=== PATIENT | female | born 1975 | race American Indian/Alaskan Native ===

== ENCOUNTER 2020-10-19 20:39 | Emergency (ER) | payer SELFPAY ==
[2020-10-19] MEDS ORDERED: ACETAMINOPHEN 325 MG TAB PO ONE (22:15)
[2020-10-19] MEDS ORDERED: ACETAMINOPHEN 325 MG/10.15 ML ORAL LIQD UNIT DOSE ONE (22:16)
[2020-10-19 22:27] VITALS: BP 167/98
--- NOTE | 2020-10-19 23:08 | XRay Report ---
LEFT HIP AND PELVIS 2 VIEWS RIGHT KNEE 2 VIEWS INDICATION: Left hip and right knee pain after injury. COMPARISON: No relevant prior imaging study available. FINDINGS: Right hip: No acute fracture or dislocation. No significant degenerative changes. Os acetabuli are se en along the lateral aspect of the left hip. Right knee: No fracture, dislocation, or joint effusion. No significant degenerative changes. No fore ign bodies. IMPRESSION: 1. No acute findings. Signer Name: Kailash May MD Signed: 10/19/2020 11:04 PM Workstation Name: [id number]
--- NOTE | 2020-10-19 23:38 | Emergency Department Report ---
ED Fall HPI - General Chief Complaint: Fall Stated Complaint: FALL,RIGHT LEG PAIN Time Seen by Provider: 10/19/20 23:15 Source: patient, EMS Mode of arrival: Wheelchair Limitations: No Limitations - History of Present Illness Initial Comments: Patient is a 45-year-old female that presents emergency room with complaints of right hip, right thigh and right knee pain. Patient states she was at a local grocery store and was shopping and slipped on a wet floor. Patient denies hitting her head. Patient denies loss of consciousness. Patient states she is not having any back pain. Patient denies arm pain. Patient states her only injury is the right lower extremity. Patient states the pain when she got here was an 8 out of 10. Patient is to give her Tylenol in triage and her pain is now a 4 out of 10. Patient states she is able to walk now. Patient states the pain is better with rest and worse with movement and palpation. Patient denies fever and chills. Patient denies chest pain or shortness of breath. Patient denies other injuries. Patient denies other physical complaints. Patient denies recent travel. Patient denies recent international travel. Patient denies exposure to the novel coronavirus. Patient denies sick contacts. Patient denies fever and chills. Patient denies cough. Patient denies diarrhea. Patient denies coming in contact with anybody with symptoms of the novel coronavirus. Complaint: fall -: Sudden Fall From: standing When Fall Occurred: 1 hour CIRCULATOR Fall Witnessed: yes, by bystander Place Fall Occurred: other (Grocery store) Loss of Consciousness: none Prolonged Down Time?: no Symptoms Prior to Fall: none Location - Extremities: Right: Thigh, Knee Severity scale (0 -10): 4 Quality: dull Context: tripped/slipped Associated Symptoms: denies. denies: headache, neck pain, numbness, weakness, chest paint, shortness of breath, abdominal pain, hematuria, unable to walk, lightheaded, vertigo, confusion - Related Data Previous Rx's Medication Instructions Recorded Last Taken Type Acetaminophen/Codeine [Tylenol 1 tab PO Q6H PRN #10 tab 10/19/20 Unknown Rx /Codeine # 3 tab] Allergies Allergy/AdvReac Type Severity Reaction Status Date / Time No Known Allergies Allergy Verified 10/19/20 22:24 ED Review of Systems ROS: Stated complaint: FALL,RIGHT LEG PAIN Other details as noted in HPI Constitutional: denies: chills, fever Eyes: denies: eye pain, eye discharge, vision change ENT: denies: ear pain, throat pain Respiratory: denies: cough, shortness of breath, wheezing Cardiovascular: denies: chest pain, palpitations Endocrine: no symptoms reported Gastrointestinal: denies: abdominal pain, nausea, diarrhea Genitourinary: denies: urgency, dysuria, discharge Musculoskeletal: as per HPI. denies: back pain, joint swelling, arthralgia Skin: denies: rash, lesions Neurological: denies: headache, weakness, paresthesias Psychiatric: denies: anxiety, depression Hematological/Lymphatic: denies: easy bleeding, easy bruising ED Past Medical Hx - Past Medical History Previous Medical History?: No - Surgical History Past Surgical History?: No - Family History Family history: no significant - Social History Smoking Status: Never Smoker Substance Use Type: None - Medications Home Medications: Home Medications Medication Instructions Recorded Confirmed Last Taken Type Acetaminophen/Codeine [Tylenol 1 tab PO Q6H PRN #10 tab 10/19/20 Unknown Rx /Codeine # 3 tab] ED Physical Exam - General Limitations: No Limitations General appearance: alert, in no apparent distress, obese - Head Head exam: Present: atraumatic, normocephalic - Eye Eye exam: Present: normal appearance - ENT ENT exam: Present: mucous membranes moist - Neck Neck exam: Present: normal inspection - Respiratory Respiratory exam: Present: normal lung sounds bilaterally. Absent: respiratory distress - Cardiovascular Cardiovascular Exam: Present: regular rate, normal rhythm. Absent: systolic murmur, diastolic murmur, rubs, gallop - GI/Abdominal GI/Abdominal exam: Present: soft, normal bowel sounds - Extremities Exam Extremities exam: Present: normal inspection, full ROM, tenderness (Right hip, right thigh and right knee.), normal capillary refill. Absent: calf tenderness - Back Exam Back exam: Present: normal inspection - Neurological Exam Neurological exam: Present: alert, oriented X3 - Psychiatric Psychiatric exam: Present: normal affect, normal mood - Skin Skin exam: Present: warm, dry, intact, normal color. Absent: rash ED Course Vital Signs 10/19/20 21:57 Temperature 97.9 F Pulse Rate 82 Respiratory 17 Rate Blood Pressure 167/98 O2 Sat by Pulse 100 Oximetry - Reevaluation(s) Reevaluation #1: I discussed all results and clinical findings with patient. I discussed plan of care with patient. Patient agrees with plan of care. Patient is stable for discharge. Patient will be discharged home. Patient given discharge instructions. Patient voiced understanding of discharge instructions. 10/19/20 23:51 ED Medical Decision Making - Radiology Data Radiology results: report reviewed, image reviewed interpreted by me: Right knee and hip x-ray: Soft tissue within normal limits, no foreign body, no osseous findings, no acute findings LEFT HIP AND PELVIS 2 VIEWS RIGHT KNEE 2 VIEWS INDICATION: Left hip and right knee pain after injury. COMPARISON: No relevant prior imaging study available. FINDINGS: Right hip: No acute fracture or dislocation. No significant degenerative changes. Os acetabuli are seen along the lateral aspect of the left hip. Right knee: No fracture, dislocation, or joint effusion. No significant degenerative changes. No foreign bodies. IMPRESSION: 1. No acute findings. - Medical Decision Making Patient is a 45-year-old female who presents emergency room status post fall at a grocery store. Patient states she slipped on a wet floor. Patient complained of right hip and right knee and right thigh pain. Patient stated her right knee and right hip were worse. Patient had x-rays done in the ER. Patient's x-rays were unremarkable. Patient stable for discharge. Patient be discharged home. - Differential Diagnosis Fall, pain, strain, fracture, contusion, knee, hip, thigh Critical care attestation.: If time is entered above; I have spent that time in minutes in the direct care of this critically ill patient, excluding procedure time. ED Disposition Clinical Impression: Acute right hip pain, Right thigh pain Fall Qualifiers: Encounter type: initial encounter Qualified Code(s): W19.XXXA - Unspecified fa ll, initial encounter Knee pain, right Qualifiers: Chronicity: acute Qualified Code(s): M25.561 - Pain in right knee Contusion, hip and thigh Qualifiers: Encounter type: initial encounter Laterality: right Qualified Code(s): S70.01XA - Contusion of right hip, initial encounter; S70.11XA - Contusion of right thigh, initial encounter Disposition: TO HOME OR SELFCARE Is pt being admited?: No Does the pt Need Aspirin: No Condition: Stable Instructions: Acute Knee Pain, Adult, Contusion, Hip Pain Additional Instructions: Patient to follow-up with primary care in 2 to 3 days. Patient to follow-up with orthopedist in 2 to 3 days. Patient to rest. Patient to increase water. Patient to avoid strenuous exercise or heavy lifting until cleared by orthopedist and primary. Patient to take Tylenol or ibuprofen as needed for pain. Patient to take meds as directed. Patient to return to the ER if condition worsens, changes or new symptoms arise. Prescriptions: Acetaminophen/Codeine [Tylenol /Codeine # 3 tab] 1 tab PO Q6H PRN #10 tab PRN Reason: Pain , Severe (7-10) Referrals: PRIMARY CARE, [Primary Care Provider] - 2-3 Days Time of Disposition: 23:52
== END 2020-10-20 00:10 | disposition home or self-care (01) ==
LOC: ED 20:39
DX: S70.01XA Contusion of right hip, initial encounter (principal); S70.11XA Contusion of right thigh, initial encounter; Z79.899 Other long term (current) drug therapy; W18.30XA Fall on same level, unspecified, initial encounter; Y93.89 Activity, other specified; Y92.89 Other specified places as the place of occurrence of the external cause; Y99.8 Other external cause status